=== PATIENT | male | born 1925 | race Caucasian/White ===

== ENCOUNTER 2016-10-11 09:46 | Outpatient (CLI) | payer MEDICARE, OTHER ==
[~2016-10-11] VITALS: Ht 174 cm; Wt 62.1 kg
[2016-10-11 09:56] VITALS: BP_SYST 134; BP_SYST 148; BP_DIAS 81; BP_DIAS 82
--- NOTE | 2016-10-11 11:00 | NUR ---
Reproduction Order Processor consult requested by Dr. Rodriguez to assess for patients social support. Patient was oriented x4. Patient is an 89 year old male. Patient appeared well-groomed and maintained good eye contact. Patient appeared to be in a good mood and his affect was congruent with his mood. Patient kept making jokes and laughing throughout the assessment. Patient lives with his son and daughter in law at [address] [place] [address] . Patient is and his lives with their youngest daughter. Patient was accompanied by his daughter in law Afshan Ibarra . general house worker spoke to the family about DNR/DNI and provided the family with a POLST form. general house worker spoke to patients daughter in law regarding adult day care centers and a [facility] pamphlet was provided to the family. Woven Label Designer spoke to family about caregiver support groups however, the family stated that they were fine at the moment and would contact the hospital social worker if they needed any referrals. Plan: Patient will follow-up with Dr. Rodriguez. Patient will return with the son and daughter in law [address] [place] [address] . general house worker informed family that she is available if needed and provided her contact information to patients daughter in law.
[2016-10-11 11:45] LABS: BASOPHILS % (AUTO) 0.2 % (0.0-2.0); EOSINOPHILS # (AUTO) 0.2 /CMM (0.0-0.7); EOSINOPHILS % (AUTO) 1.5 % (0.0-6.0); HEMATOCRIT 49 % (39-51); HEMOGLOBIN 15.9 g/dL (13.5-17.5); LYMPHOCYTES # (AUTO) 1.8 /CMM (0.8-4.8); LYMPHOCYTES % (AUTO) 16.4 % (20.0-44.0); MEAN CORPUSCULAR HEMOGLOBIN 29 PG (26.0-33.0); MEAN CORPUSCULAR HGB CONC 33 g/dl (31.0-36.0); MEAN CORPUSCULAR VOLUME 89 fL (80-96); MONOCYTES # (AUTO) 0.7 /CMM (0.1-1.30); MONOCYTES % (AUTO) 6.1 % (2.0-12.0); NEUTROPHILS # (AUTO) 8.2 /CMM (1.8-8.9); NEUTROPHILS % (AUTO) 75.8 % (43.0-81.0); PLATELET COUNT (AUTO) 254 /CMM (150-450); RDW COEFFICIENT OF VARIATION 13.9 (11.5-15.0); RED BLOOD CELL COUNT(AUTO) 5.46 MIL/uL (4.5-6.0); WHITE BLOOD COUNT (AUTO) 10.8 K/uL (4.3-11.0)
[2016-10-11 12:08] LABS: ALBUMIN 3.9 g/dL (3.4-5.0); CREATININE 1.1 mg/dL (0.6-1.3); MAGNESIUM 1.9 mg/dL (1.8-2.4); POTASSIUM 4.6 mmol/L (3.5-5.1)
[2016-10-11 12:11] LABS: THYROID STIMULATING HORMONE 0.748 uIU/mL (0.358-3.74)
[2016-10-11] MEDS ORDERED: CHOL200016 PO (16:17)
[2016-10-11] MEDS ORDERED: MEMA28CA PO (16:17)
[2016-10-11] MEDS ORDERED: DONE5TAB34 PO (16:17)
== END 2016-10-11 23:59 | disposition home or self-care (01) ==
LOC: CSC 09:46
PROVIDERS: ATTEND Internal Medicine
DX: R00.1 Bradycardia, unspecified (principal); R54 Age-related physical debility; J32.9 Chronic sinusitis, unspecified
CPT/HCPCS: 36415; 80048; 82040; 82607; 83735; 84443; 85025; 97001; 97161; G0463